=== PATIENT | male | born 1945 | race Caucasian/White ===

== ENCOUNTER → 2016-06-06 | Outpatient (REF) | payer MEDICARE, OTHER ==
[2016-06-06 14:09] LABS: PERCENT SATURATION 19.2 % (19.7-37.4)
== END ==
LOC: M LAB REF 12:57
PROVIDERS: ATTEND Internal Medicine
DX: D50.9 Iron deficiency anemia, unspecified (principal)

== ENCOUNTER → 2016-12-12 | Outpatient (REF) | payer MEDICARE, OTHER ==
[2016-12-12 13:47] LABS: PERCENT SATURATION 25.9 % (19.7-50.0)
== END ==
LOC: M LAB REF 12:48
PROVIDERS: ATTEND Internal Medicine
DX: D50.9 Iron deficiency anemia, unspecified (principal)

== ENCOUNTER → 2017-06-30 | Outpatient (REF) | payer MEDICARE, OTHER ==
[2017-06-30 13:16] LABS: IRON (FE) 88 UG/DL (65-175); PERCENT SATURATION 29.2 % (19.7-50.0); TOTAL IRON BINDING CAPACITY 301 UG/DL (250-450)
== END ==
LOC: M LAB REF 12:23
DX: D50.9 Iron deficiency anemia, unspecified (principal)
CPT/HCPCS: 83550

== ENCOUNTER → 2018-07-16 | Outpatient (REF) | payer MEDICARE, OTHER ==
[2018-07-16 13:40] LABS: PERCENT SATURATION 38.3 % (19.7-50.0)
== END ==
LOC: M LAB REF 12:25
PROVIDERS: ATTEND Internal Medicine
DX: D50.9 Iron deficiency anemia, unspecified (principal); Z86.010 Personal history of colon polyps; R00.0 Tachycardia, unspecified; M81.0 Age-related osteoporosis without current pathological fracture

== ENCOUNTER 2018-09-23 08:16 | Emergency (ER) | payer MEDICARE, BC, OTHER ==
[~2018-09-23] VITALS: Ht 180.3 cm; Wt 76.4 kg
[2018-09-23] MEDS ORDERED: MECLIZINE 25 MG TABLET PO ONE (09:00)
[2018-09-23 09:21] LABS: HEMATOCRIT 44.7 % (42.0-52.0); HEMOGLOBIN 15.1 g/dl (13.5-17.5); MEAN CORPUSCULAR HEMOGLOBIN 32.8 pg (27.0-33.0); MEAN CORPUSCULAR HGB CONC 33.8 g/dl (32.0-36.5); MEAN CORPUSCULAR VOLUME 97.2 fl (80.0-96.0); PLATELET COUNT, AUTOMATED 200 10^3/uL (150-450); WHITE BLOOD COUNT 4.7 10^3/uL (4.0-10.0)
[2018-09-23] MEDS ORDERED: CALC-190 PO (09:27)
[2018-09-23] MEDS ORDERED: PEG1POW PO (09:27)
[2018-09-23] MEDS ORDERED: CVS50CAP PO (09:27)
[2018-09-23] MEDS ORDERED: MULTCAP PO (09:27)
[2018-09-23] MEDS ORDERED: PANT20TA2 PO (09:27)
[2018-09-23] MEDS ORDERED: ASPI81CH33 PO (09:27)
[2018-09-23] MEDS ORDERED: IRON1TAB2 PO (09:27)
[2018-09-23] MEDS ORDERED: D200CAP2 PO (09:27)
[2018-09-23] MEDS ORDERED: IRON325T2 PO (09:27)
--- NOTE | 2018-09-23 09:30 | REP ---
CT HEAD WITHOUT CONTRAST: HISTORY: Vertigo. COMPARISON: 12/24/2010. Areas of decreased attentuation are present in the periventricular white matter. This represents small vessel ischemic disease. There is no intraparenchymal hemorrhage, mass, or midline shift. The ventricular system and cortical sulci are dilated and consistent with minimal volume loss. There is no extracerebral collection. The visualized sinuses are clear. IMPRESSION: 1. Small vessel ischemic disease. 2. Minimal volume loss. Electronically Signed by Jovan Norman MD 09/23/2018 09:31 A
[2018-09-23 09:44] LABS: BLOOD UREA NITROGEN 8 MG/DL (7-18); CALCIUM LEVEL 8.1 MG/DL (8.8-10.2); CARBON DIOXIDE LEVEL 27 MEQ/L (21-32); CHLORIDE LEVEL 109 MEQ/L (98-107); CK-MB VALUE MASS 1.1 NG/ML (<3.6); CPK CREATINE PHOSPHOKINASE 120 U/L (39-308); CREATININE FOR GFR 0.83 MG/DL (0.70-1.30); GLOMERULAR FILTRATION RATE > 60.0 (>42); GLUCOSE, FASTING 119 MG/DL (70-100); MB/CK RELATIVE INDEX 0.92 (< OR =4); POTASSIUM SERUM 4.1 MEQ/L (3.5-5.1); SODIUM LEVEL 141 MEQ/L (136-145); TROPONIN I < 0.02 NG/ML (< 0.10)
--- NOTE | 2018-09-23 12:37 | REP ---
MR BRAIN WITHOUT CONTRAST: HISTORY: Vertigo. COMPARISON: MR 12/24/[address] 09/23/2018 Areas of increased signal intensity on T2-weighted images are present in the periventricular and subcortical white matter. This represents small vessel ischemic disease. There is no intraparenchymal hemorrhage, infarct, mass or midline shift. The ventricular system and cortical sulci are dilated consistent with minimal volume loss. There is no extracerebral collection. The visualized sinuses are clear. IMPRESSION: 1. Small vessel ischemic disease. 2. Minimal volume loss. Electronically Signed by Jovan Norman MD 09/23/2018 12:48 P
[2018-09-23] MEDS ORDERED: MECL1TAB31 PO (12:41)
[2018-09-23 13:10] VITALS: BP 149/72
--- NOTE | 2018-09-23 21:41 | ECGEPIP ---
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
== END 2018-09-23 13:00 | disposition home or self-care (01) ==
LOC: M ED 08:16 → EDBD 08:16 → M ED 13:00
DX: R42 Dizziness and giddiness (principal); E78.5 Hyperlipidemia, unspecified; K21.9 Gastro-esophageal reflux disease without esophagitis; Z79.899 Other long term (current) drug therapy; Z79.82 Long term (current) use of aspirin; Z91.018 Allergy to other foods

== ENCOUNTER 2019-08-19 20:52 | Emergency (ER) | payer MEDICARE, BC, OTHER ==
[~2019-08-19] VITALS: Ht 177.8 cm; Wt 76.8 kg
[~2019-08-19 20:52] MED LIST: ASPI81CH33 PO; CALC-190 PO; CVS50CAP PO; D200CAP2 PO; IRON1TAB2 PO; IRON325T2 PO; MECL1TAB31 PO; MULTCAP PO; PANT20TA2 PO; PEG1POW PO
[2019-08-19] MEDS ORDERED: MECL1TAB31 PO ×2 (21:13→23:36)
[2019-08-19] MEDS ORDERED: METOCLOPRAMIDE INJ 10MG/2ML VIAL (J2765 PER 1) IV ONE (21:45)
[2019-08-19] MEDS ORDERED: MECLIZINE 25 MG TABLET PO ONE (21:45)
[2019-08-19 22:53] LABS: BASO % 0.4 % (0.0-1.0); EOS % 0.2 % (0.0-3.0); HEMATOCRIT 44.7 % (42.0-52.0); HEMOGLOBIN 15.1 g/dl (13.5-17.5); LYMPH # 1.1 10^3/uL (1.5-5.0); LYMPH % 9.3 % (24.0-44.0); MEAN CORPUSCULAR HEMOGLOBIN 32.1 pg (27.0-33.0); MEAN CORPUSCULAR HGB CONC 33.8 g/dl (32.0-36.5); MEAN CORPUSCULAR VOLUME 95.1 fl (80.0-96.0); NEUTROPHILS # 9.1 10^3/uL (1.5-8.5); NEUTROPHILS % 80.4 % (36.0-66.0); PLATELET COUNT, AUTOMATED 196 10^3/uL (150-450); WHITE BLOOD COUNT 11.3 10^3/uL (4.0-10.0)
[2019-08-19 23:07] LABS: ALT/SGPT 43 U/L (12-78); BILIRUBIN,TOTAL 0.5 MG/DL (0.2-1.0); BLOOD UREA NITROGEN 14 MG/DL (7-18); CALCIUM LEVEL 9.1 MG/DL (8.8-10.2); CARBON DIOXIDE LEVEL 29 MEQ/L (21-32); CHLORIDE LEVEL 105 MEQ/L (98-107); CREATININE FOR GFR 0.98 MG/DL (0.70-1.30); GLOMERULAR FILTRATION RATE > 60.0 (>42); GLUCOSE, FASTING 136 MG/DL (70-100); POTASSIUM SERUM 4.2 MEQ/L (3.5-5.1); SODIUM LEVEL 137 MEQ/L (136-145); TOTAL PROTEIN 7.4 GM/DL (6.4-8.2)
[2019-08-19] MEDS ORDERED: REGL5TAB2 PO (23:36)
[2019-08-19] MEDS ORDERED: METOCLOPRAMIDE 5 MG TAB PO ONE (23:45)
[2019-08-20 00:04] VITALS: BP 137/86
--- NOTE | 2019-08-20 01:00 | ECGEPIP ---
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
== END 2019-08-20 00:11 | disposition home or self-care (01) ==
LOC: M ED 20:52
DX: H81.10 Benign paroxysmal vertigo, unspecified ear (principal); K21.9 Gastro-esophageal reflux disease without esophagitis; E78.5 Hyperlipidemia, unspecified; Z79.899 Other long term (current) drug therapy; Z79.82 Long term (current) use of aspirin; Z91.018 Allergy to other foods
CPT/HCPCS: 80053; 85025; 93005; 96374; 99285; J2765

== ENCOUNTER → 2021-02-08 | Outpatient (REF) | payer MEDICARE, BC, OTHER ==
[~2021-02-08] MED LIST changes: -PANT20TA2 PO; +PANT20TA6 PO; -PEG1POW PO; +POLY17PO18 PO; +REGL5TAB2 PO
== END ==
LOC: M LAB REF 12:09
PROVIDERS: ATTEND Internal Medicine
DX: D50.9 Iron deficiency anemia, unspecified (principal)

== ENCOUNTER → 2021-03-07 | Outpatient (CLI) | payer MEDICARE, BC, OTHER | LOC: M WHC 07:47 | PROVIDERS: ATTEND Internal Medicine | DX: M81.0 Age-related osteoporosis without current pathological fracture (principal); M85.89 Other specified disorders of bone density and structure, multiple sites ==

== ENCOUNTER → 2021-08-25 | Outpatient (CLI) | payer MEDICARE, BC, OTHER ==
[2021-08-25 10:42] LABS: ALBUMIN 3.9 GM/DL (3.2-5.2); BLOOD UREA NITROGEN 9 MG/DL (7-18); CALCIUM LEVEL 8.6 MG/DL (8.8-10.2); CARBON DIOXIDE LEVEL 28 MEQ/L (21-32); CHLORIDE LEVEL 103 MEQ/L (98-107); CREATININE FOR GFR 0.99 MG/DL (0.70-1.30); GLOMERULAR FILTRATION RATE > 60.0 (>42); GLUCOSE, FASTING 99 MG/DL (70-100); PHOSPHORUS LEVEL 2.7 MG/DL (2.5-4.9); POTASSIUM SERUM 4.2 MEQ/L (3.5-5.1); SODIUM LEVEL 136 MEQ/L (136-145)
== END ==
LOC: M LAB 09:00
PROVIDERS: ATTEND Physician Assistant
DX: J06.9 Acute upper respiratory infection, unspecified (principal)

== ENCOUNTER → 2021-12-20 | Outpatient (CLI) | payer MEDICARE, BC, OTHER ==
[2021-12-20 17:04] LABS: MAGNESIUM LEVEL 2.3 MG/DL (1.8-2.4)
[2021-12-20 19:46] LABS: TOTAL 25(OH) VITAMIN D 42.6 NG/ML (30.0-100.0)
[2021-12-22 18:21] LABS: ENDOMYSIAL ABY IgA Negative (Negative); TISSUE TRANSGLUTAMINASE IgA <2 U/mL (0-3); TISSUE TRANSGLUTAMINASE IgG <2 U/mL (0-5)
== END ==
LOC: M WUC 11:56
PROVIDERS: ATTEND Nurse Practitioner Family
DX: K22.70 Barrett's esophagus without dysplasia (principal); K90.0 Celiac disease; E55.9 Vitamin D deficiency, unspecified; Z86.010 Personal history of colon polyps

== ENCOUNTER → 2022-06-13 | Outpatient (REF) | payer MEDICARE, OTHER ==
[2022-06-13 13:10] LABS: PERCENT SATURATION 28.2 % (19.7-50.0)
== END ==
LOC: M LAB REF 12:16
PROVIDERS: ATTEND Internal Medicine
DX: D50.9 Iron deficiency anemia, unspecified (principal)

== ENCOUNTER → 2022-12-30 | Outpatient (CLI) | payer MEDICARE, OTHER ==
[~2022-12-30] MED LIST changes: +MECL-209 PO; -MECL1TAB31 PO
[2022-12-30 10:19] LABS: MAGNESIUM LEVEL 2.3 MG/DL (1.8-2.4)
[2022-12-30 10:47] LABS: TOTAL 25(OH) VITAMIN D 50.4 NG/ML (20.0-100.0)
== END ==
LOC: M WUC 08:14
PROVIDERS: ATTEND Physician Assistant
DX: K22.70 Barrett's esophagus without dysplasia (principal); Z86.010 Personal history of colon polyps; E55.9 Vitamin D deficiency, unspecified; K90.0 Celiac disease

== ENCOUNTER → 2023-07-01 | Outpatient (REF) | payer MEDICARE, OTHER ==
[2023-07-01 14:02] LABS: PERCENT SATURATION 23.6 % (19.7-50.0)
== END ==
LOC: M LAB REF 12:01
PROVIDERS: ATTEND Internal Medicine
DX: D50.9 Iron deficiency anemia, unspecified (principal)

== ENCOUNTER 2023-11-29 13:19 | Emergency (ER) | payer MEDICARE, OTHER ==
[~2023-11-29] VITALS: Ht 180.3 cm; Wt 71.8 kg
[2023-11-29 13:52] LABS: BASO # 0.1 10^3/uL (0.0-0.2); BASO % 1.1 % (0.0-1.0); EOS # 0.1 10^3/uL (0.0-0.5); EOS % 1.2 % (0.0-3.0); HEMATOCRIT 37.5 % (42.0-52.0); HEMOGLOBIN 12.7 g/dl (13.5-17.5); LYMPH # 1.6 10^3/uL (1.5-5.0); LYMPH % 28.1 % (24.0-44.0); MEAN CORPUSCULAR HEMOGLOBIN 32.2 pg (27.0-33.0); MEAN CORPUSCULAR HGB CONC 33.9 g/dl (32.0-36.5); MEAN CORPUSCULAR VOLUME 95.2 fl (80.0-96.0); MONO # 0.8 10^3/uL (0.0-0.8); NEUTROPHILS # 3.1 10^3/uL (1.5-8.5); NEUTROPHILS % 55.4 % (36.0-66.0); PLATELET COUNT, AUTOMATED 182 10^3/uL (150-450); RED BLOOD COUNT 3.94 10^6/uL (4.30-6.10); WHITE BLOOD COUNT 5.6 10^3/uL (4.0-10.0)
[2023-11-29 14:04] LABS: INR 1.17; PROTHROMBIN TIME 14.5 SECONDS (12.5-14.5)
[2023-11-29 14:33] LABS: CK-MB VALUE MASS < 1.0 NG/ML (<3.6)
[2023-11-29 14:34] LABS: BLOOD UREA NITROGEN 14 MG/DL (9-23); CARBON DIOXIDE LEVEL 28 MMOL/L (20-31); CHLORIDE LEVEL 107 MMOL/L (98-107); CPK CREATINE PHOSPHOKINASE 92 U/L (46-171); CREATININE FOR GFR 0.86 MG/DL (0.70-1.30); GLOMERULAR FILTRATION RATE > 60.0 (>42); GLUCOSE, FASTING 87 MG/DL (74-106); MB/CK RELATIVE INDEX 1.08 (< OR =4); POTASSIUM SERUM 4.5 MMOL/L (3.5-5.1); SODIUM LEVEL 140 MMOL/L (136-145)
[2023-11-29] MEDS ORDERED: ISOVUE-370 76% 100ML VIAL As Ordered ONE (15:00)
[2023-11-29 15:29] LABS: CK-MB VALUE MASS < 1.0 NG/ML (<3.6)
[2023-11-29 15:31] LABS: CPK CREATINE PHOSPHOKINASE 82 U/L (46-171); MB/CK RELATIVE INDEX 1.21 (< OR =4)
[2023-11-29] MEDS ORDERED: HEPARIN SOD (PORCINE) 5000UNITS/ML 1ML VIAL/SYRINGE IV PRN (16:40)
[2023-11-29] MEDS: HEPARIN SOD (PORCINE) 5000UNITS/ML 1ML VIAL/SYRINGE IV ONE (16:53)
[2023-11-29] MEDS: HEPARIN DRIP 25,000 UNITS in IV 1 EA IV SCH (16:54)
[2023-11-29 17:39] VITALS: BP 127/69; TEMP 97; O2SAT 96
== END 2023-11-29 17:41 | disposition short-term general hospital (02) ==
LOC: M ED 13:19 → EDBD 13:19 → M ED 17:41
DX: I20.0 Unstable angina (principal); I25.2 Old myocardial infarction; I10 Essential (primary) hypertension; E78.5 Hyperlipidemia, unspecified; K21.9 Gastro-esophageal reflux disease without esophagitis; N40.0 Benign prostatic hyperplasia without lower urinary tract symptoms; D50.9 Iron deficiency anemia, unspecified; F10.10 Alcohol abuse, uncomplicated
CPT/HCPCS: 71045; 71275; 80048; 82550; 82553; 84484; 85025; 85610; 85730; 93005; 93041; 94760; 96374; 96375; 99285; Q9967

== ENCOUNTER 2023-12-17 06:20 | Observation (INO) | payer MEDICARE, OTHER ==
[~2023-12-17] VITALS: Ht 180.3 cm; Wt 70.7 kg
[2023-12-17 06:53] LABS: BASO # 0.1 10^3/uL (0.0-0.2); BASO % 1.1 % (0.0-1.0); EOS # 0.1 10^3/uL (0.0-0.5); EOS % 2.5 % (0.0-3.0); HEMATOCRIT 37.6 % (42.0-52.0); HEMOGLOBIN 12.5 g/dl (13.5-17.5); LYMPH # 1.5 10^3/uL (1.5-5.0); LYMPH % 28.9 % (24.0-44.0); MEAN CORPUSCULAR HEMOGLOBIN 31.8 pg (27.0-33.0); MEAN CORPUSCULAR HGB CONC 33.2 g/dl (32.0-36.5); MEAN CORPUSCULAR VOLUME 95.7 fl (80.0-96.0); MONO # 0.6 10^3/uL (0.0-0.8); MONO % 11.3 % (2.0-8.0); NEUTROPHILS # 2.9 10^3/uL (1.5-8.5); PLATELET COUNT, AUTOMATED 191 10^3/uL (150-450); RED BLOOD COUNT 3.93 10^6/uL (4.30-6.10); WHITE BLOOD COUNT 5.2 10^3/uL (4.0-10.0)
[2023-12-17 07:13] LABS: ALBUMIN 3.7 G/DL (3.2-5.2); ALKALINE PHOSPHATASE 58 U/L (40-129); ALT/SGPT 28 U/L (7.0-40); AST/SGOT 17 U/L (<34); BILIRUBIN,DIRECT 0.3 MG/DL (<0.4); BILIRUBIN,TOTAL 0.7 MG/DL (0.3-1.2); BLOOD UREA NITROGEN 11 MG/DL (9-23); CARBON DIOXIDE LEVEL 28 MMOL/L (20-31); CHLORIDE LEVEL 109 MMOL/L (98-107); CPK CREATINE PHOSPHOKINASE 79 U/L (46-171); CREATININE FOR GFR 0.83 MG/DL (0.70-1.30); GLOMERULAR FILTRATION RATE > 60.0 (>42); GLUCOSE, FASTING 128 MG/DL (74-106); POTASSIUM SERUM 4.1 MMOL/L (3.5-5.1); SODIUM LEVEL 141 MMOL/L (136-145); TOTAL PROTEIN 6.7 G/DL (5.7-8.2)
[2023-12-17 07:14] LABS: CK-MB VALUE MASS < 1.0 NG/ML (<3.6); MB/CK RELATIVE INDEX 1.26 (< OR =4)
[2023-12-17] MEDS ORDERED: ISOVUE-370 76% 100ML VIAL As Ordered ONE (07:17)
[2023-12-17 07:19] LABS: THYROID STIMULATING HORMONE 5.556 uIU/ML (0.55-4.78)
[2023-12-17] MEDS: MECLIZINE 25 MG TABLET PO ONE (07:59)
[2023-12-17 08:11] LABS: INR 1.12; PARTIAL THROMBOPLASTIN TIME 30.8 SECONDS (24.8-34.2); PROTHROMBIN TIME 14.7 SECONDS (12.5-14.5)
[2023-12-17 08:21] LABS: CPK CREATINE PHOSPHOKINASE 65 U/L (46-171)
[2023-12-17 08:23] LABS: CK-MB VALUE MASS < 1.0 NG/ML (<3.6); MB/CK RELATIVE INDEX 1.53 (< OR =4)
[2023-12-17] MEDS ORDERED: METO1TAB32 PO (08:57)
[2023-12-17] MEDS ORDERED: ATOR80TA59 PO (08:57)
[2023-12-17] MEDS ORDERED: FAMO40TA3 PO (08:57)
[2023-12-17] MEDS ORDERED: LISI2.5T9 PO (08:57)
[2023-12-17] MEDS ORDERED: CYCL1DRO10 OU (08:57)
[2023-12-17] MEDS ORDERED: AMLO2.5T3 PO (08:57)
[2023-12-17] MEDS ORDERED: MUPI2OI (08:57)
[2023-12-17] MEDS ORDERED: CLOP75TA2 PO (08:57)
[2023-12-17] MEDS ORDERED: LATANOPROST (08:57)
[2023-12-17] MEDS ORDERED: ACETAMINOPHEN 325 MG TAB PO PRN (09:15)
[2023-12-17] MEDS ORDERED: XALA0.007 OU (10:33)
[2023-12-17] MEDS ORDERED: VITA200032 PO (10:33)
[2023-12-17] MEDS ORDERED: NITR4TASL SL (10:33)
[2023-12-17] MEDS ORDERED: HOME MED LIST COMPLETE! XX SCH (10:35)
[2023-12-17] MEDS: FAMOTIDINE 20 MG TAB PO SCH (13:05)
[2023-12-17] MEDS: ATORVASTATIN 20 MG TAB PO SCH (13:05)
[2023-12-17] MEDS: METOPROLOL SUCC *XL* 25MG TAB (TopROL *XL*) PO SCH (13:06)
[2023-12-17] MEDS: DOCUSATE SODIUM 100MG CAPSULE PO PRN (13:06)
[2023-12-17] MEDS: CLOPIDOGREL 75 MG TAB PO SCH (13:06)
[2023-12-17] MEDS: ASPIRIN 81MG CHEW TABLET PO SCH (13:07)
[2023-12-17] MEDS: LISINOPRIL *2.5 MG* TAB PO SCH (13:10)
[2023-12-17 13:37] VITALS: BP 146/67; TEMP 97.9; O2SAT 95
[2023-12-17 19:52] VITALS: BP 109/59; TEMP 98.1; O2SAT 96
[2023-12-17] MEDS ORDERED: MECLIZINE 25 MG TABLET PO PRN (19:55)
[2023-12-17] MEDS: LATANOPROST 0.005% OPHTH SOLN 2.5 ML OU SCH (20:01)
[2023-12-18 05:14] VITALS: BP 113/61; TEMP 97.9; O2SAT 94
[2023-12-18 05:50] LABS: HEMATOCRIT 36.6 % (42.0-52.0); HEMOGLOBIN 12.3 g/dl (13.5-17.5); MEAN CORPUSCULAR HEMOGLOBIN 32.5 pg (27.0-33.0); MEAN CORPUSCULAR HGB CONC 33.6 g/dl (32.0-36.5); MEAN CORPUSCULAR VOLUME 96.8 fl (80.0-96.0); PLATELET COUNT, AUTOMATED 185 10^3/uL (150-450); RED BLOOD COUNT 3.78 10^6/uL (4.30-6.10); WHITE BLOOD COUNT 5.9 10^3/uL (4.0-10.0)
[2023-12-18 06:21] LABS: ALBUMIN 3.4 G/DL (3.2-5.2); ALKALINE PHOSPHATASE 54 U/L (40-129); ALT/SGPT 25 U/L (7.0-40); AST/SGOT 14 U/L (<34); BILIRUBIN,TOTAL 0.6 MG/DL (0.3-1.2); BLOOD UREA NITROGEN 10 MG/DL (9-23); CALCIUM LEVEL 8.8 MG/DL (8.3-10.6); CARBON DIOXIDE LEVEL 28 MMOL/L (20-31); CHLORIDE LEVEL 109 MMOL/L (98-107); CREATININE FOR GFR 0.88 MG/DL (0.70-1.30); GLOMERULAR FILTRATION RATE > 60.0 (>42); GLUCOSE, FASTING 95 MG/DL (74-106); POTASSIUM SERUM 4.2 MMOL/L (3.5-5.1); SODIUM LEVEL 141 MMOL/L (136-145); TOTAL PROTEIN 6.3 G/DL (5.7-8.2)
[2023-12-18] MEDS: ENOXAPARIN 40MG/0.4ML SYRINGE (J1650 PER 10MG) SC SCH (09:27)
[2023-12-18 09:38] VITALS: BP 110/59
[2023-12-18] MEDS ORDERED: MECL-86 PO (10:29)
== END 2023-12-18 11:45 | disposition home or self-care (01) ==
LOC: M ED 06:20 → M ED INP 06:21 → M MSPAV 13:38
PROVIDERS: ADMIT Internal Medicine; ATTEND Internal Medicine
DX: R42 Dizziness and giddiness (principal); I25.10 Atherosclerotic heart disease of native coronary artery without angina pectoris; I25.2 Old myocardial infarction; I10 Essential (primary) hypertension; K21.9 Gastro-esophageal reflux disease without esophagitis; K90.0 Celiac disease; R26.81 Unsteadiness on feet; H55.09 Other forms of nystagmus; Z87.891 Personal history of nicotine dependence; Z79.899 Other long term (current) drug therapy; Z79.82 Long term (current) use of aspirin; Z79.02 Long term (current) use of antithrombotics/antiplatelets
CPT/HCPCS: 36415; 70450; 70496; 70498; 70551; 71045; 80048; 80053; 80076; 81001; 82550; 82553; 84443; 84484; 85025; 85027; 85610; 85730; 93005; 93041; 94760; 96372; 97161; 97165; 97530; 97535; 99285; G0378; J1650; Q9967

== ENCOUNTER → 2024-01-08 | Outpatient (CLI) | payer MEDICARE, OTHER ==
[~2024-01-08] MED LIST changes: +AMLO2.5T3 PO; +ATOR80TA59 PO; +CLOP75TA2 PO; +CYCL1DRO10 OU; +FAMO40TA3 PO; +LATANOPROST; +LISI2.5T9 PO; +MECL-86 PO; +METO1TAB32 PO; +MUPI2OI; +NITR4TASL SL; +VITA200032 PO; +XALA0.007 OU
[2024-01-08 10:37] LABS: HEMATOCRIT 39.4 % (42.0-52.0); HEMOGLOBIN 13.2 g/dl (13.5-17.5); MEAN CORPUSCULAR HEMOGLOBIN 32.3 pg (27.0-33.0); MEAN CORPUSCULAR HGB CONC 33.5 g/dl (32.0-36.5); MEAN CORPUSCULAR VOLUME 96.3 fl (80.0-96.0); PLATELET COUNT, AUTOMATED 194 10^3/uL (150-450); RED BLOOD COUNT 4.09 10^6/uL (4.30-6.10); WHITE BLOOD COUNT 5.3 10^3/uL (4.0-10.0)
[2024-01-08 11:09] LABS: ALBUMIN 3.8 G/DL (3.2-5.2); ALKALINE PHOSPHATASE 60 U/L (40-129); ALT/SGPT 30 U/L (7.0-40); AST/SGOT 18 U/L (<34); BILIRUBIN,TOTAL 0.8 MG/DL (0.3-1.2); BLOOD UREA NITROGEN 15 MG/DL (9-23); CALCIUM LEVEL 9.4 MG/DL (8.3-10.6); CARBON DIOXIDE LEVEL 31 MMOL/L (20-31); CHLORIDE LEVEL 106 MMOL/L (98-107); CREATININE FOR GFR 0.94 MG/DL (0.70-1.30); GLOMERULAR FILTRATION RATE > 60.0 (>42); GLUCOSE, FASTING 101 MG/DL (74-106); POTASSIUM SERUM 4.5 MMOL/L (3.5-5.1); SODIUM LEVEL 141 MMOL/L (136-145); TOTAL PROTEIN 7.1 G/DL (5.7-8.2)
[2024-01-08 11:11] LABS: TOTAL 25(OH) VITAMIN D 50.7 NG/ML (20.0-100.0)
== END ==
LOC: M WUC 08:09
PROVIDERS: ATTEND Internal Medicine Gastroenterology
DX: K22.70 Barrett's esophagus without dysplasia (principal); K90.0 Celiac disease; E55.9 Vitamin D deficiency, unspecified

== ENCOUNTER → 2024-01-13 | Outpatient (CLI) | payer MEDICARE, BC | LOC: M WHC 09:11 | PROVIDERS: ATTEND Internal Medicine | DX: M81.0 Age-related osteoporosis without current pathological fracture (principal) ==

== ENCOUNTER 2024-02-06 11:37 | Emergency (ER) | payer MEDICARE, BC ==
[~2024-02-06] VITALS: Ht 180.3 cm; Wt 70.9 kg
[2024-02-06] MEDS: fentaNYL 100 MCG/2 ML INJECTION IV PRN (12:09)
[2024-02-06 12:11] LABS: BASO # 0.1 10^3/uL (0.0-0.2); BASO % 1.4 % (0.0-1.0); EOS # 0.1 10^3/uL (0.0-0.5); EOS % 1.4 % (0.0-3.0); HEMATOCRIT 37.8 % (42.0-52.0); HEMOGLOBIN 12.7 g/dl (13.5-17.5); LYMPH # 1.5 10^3/uL (1.5-5.0); LYMPH % 33.2 % (24.0-44.0); MEAN CORPUSCULAR HEMOGLOBIN 31.9 pg (27.0-33.0); MEAN CORPUSCULAR HGB CONC 33.6 g/dl (32.0-36.5); MONO # 0.6 10^3/uL (0.0-0.8); NEUTROPHILS # 2.2 10^3/uL (1.5-8.5); NEUTROPHILS % 50.8 % (36.0-66.0); PLATELET COUNT, AUTOMATED 174 10^3/uL (150-450); RED BLOOD COUNT 3.98 10^6/uL (4.30-6.10); WHITE BLOOD COUNT 4.4 10^3/uL (4.0-10.0)
[2024-02-06 12:31] LABS: INR 1.16; PROTHROMBIN TIME 15.1 SECONDS (12.5-14.5)
[2024-02-06 12:36] LABS: LIPASE 32 U/L (12-53)
[2024-02-06 12:37] LABS: CK-MB VALUE MASS < 1.0 NG/ML (<3.6)
[2024-02-06 12:39] LABS: ALBUMIN 3.6 G/DL (3.2-5.2); ALKALINE PHOSPHATASE 53 U/L (40-129); ALT/SGPT 27 U/L (7.0-40); AST/SGOT 18 U/L (<34); BILIRUBIN,DIRECT 0.3 MG/DL (<0.4); BILIRUBIN,TOTAL 0.9 MG/DL (0.3-1.2); BLOOD UREA NITROGEN 17 MG/DL (9-23); CARBON DIOXIDE LEVEL 28 MMOL/L (20-31); CHLORIDE LEVEL 105 MMOL/L (98-107); CPK CREATINE PHOSPHOKINASE 102 U/L (46-171); CREATININE FOR GFR 0.84 MG/DL (0.70-1.30); GLOMERULAR FILTRATION RATE > 60.0 (>42); GLUCOSE, FASTING 131 MG/DL (74-106); MB/CK RELATIVE INDEX 0.98 (< OR =4); POTASSIUM SERUM 4.4 MMOL/L (3.5-5.1); SODIUM LEVEL 140 MMOL/L (136-145); TOTAL PROTEIN 6.5 G/DL (5.7-8.2)
[2024-02-06 12:40] LABS: THYROID STIMULATING HORMONE 3.814 uIU/ML (0.55-4.78)
[2024-02-06 12:41] LABS: FREE T4 1.02 NG/DL (0.89-1.76)
[2024-02-06 13:16] LABS: CK-MB VALUE MASS < 1.0 NG/ML (<3.6); CPK CREATINE PHOSPHOKINASE 99 U/L (46-171); MB/CK RELATIVE INDEX 1.01 (< OR =4)
[2024-02-06] MEDS ORDERED: ISOVUE-370 76% 100ML VIAL As Ordered ONE (13:28)
[2024-02-06 14:54] LABS: CK-MB VALUE MASS < 1.0 NG/ML (<3.6)
[2024-02-06 14:56] LABS: CPK CREATINE PHOSPHOKINASE 93 U/L (46-171); MB/CK RELATIVE INDEX 1.07 (< OR =4)
[2024-02-06 16:45] VITALS: BP 137/77; TEMP 98; O2SAT 98
[2024-02-06] MEDS ORDERED: PANT40TA29 PO (16:52)
== END 2024-02-06 17:13 | disposition home or self-care (01) ==
LOC: M ED 11:37 → EDBD 11:37 → M ED 17:13
DX: R07.9 Chest pain, unspecified (principal); R91.1 Solitary pulmonary nodule; I25.2 Old myocardial infarction; I44.0 Atrioventricular block, first degree; I25.119 Atherosclerotic heart disease of native coronary artery with unspecified angina pectoris; I10 Essential (primary) hypertension; F10.10 Alcohol abuse, uncomplicated; Z79.1 Long term (current) use of non-steroidal anti-inflammatories (NSAID); Z79.899 Other long term (current) drug therapy
CPT/HCPCS: 71045; 71275; 80047; 80048; 80076; 82550; 82553; 83690; 83880; 84439; 84443; 84484; 85025; 85610; 93005; 93041; 94760; 96374; 99285; J3010; Q9967

== ENCOUNTER → 2024-05-14 | Outpatient (REF) | payer MEDICARE, BC ==
[~2024-05-14] MED LIST changes: +PANT40TA29 PO
[2024-05-14 13:41] LABS: PERCENT SATURATION 31.8 % (19.7-50.0)
== END ==
LOC: M LAB REF 12:35
PROVIDERS: ATTEND Internal Medicine
DX: D64.9 Anemia, unspecified (principal)

== ENCOUNTER → 2024-05-17 | Outpatient (CLI) | payer MEDICARE, BC | LOC: M PLAIMG 13:55 | PROVIDERS: ATTEND Internal Medicine | DX: R91.8 Other nonspecific abnormal finding of lung field (principal); J43.9 Emphysema, unspecified ==